=== PATIENT | male | born 1985 | race Caucasian/White ===

== ENCOUNTER 2024-05-23 12:02 | Emergency (ER) | payer OTHER ==
[~2024-05-23] VITALS: Ht 165.1 cm; Wt 72.0 kg
[2024-05-23 12:18] VITALS: TEMP 97.9
[2024-05-23 14:05] VITALS: BP 124/73; PULSE 69; RESP 16
[2024-05-23] MEDS: KETOROLAC TROMETHAMINE 30 MG/ML VIAL IM ONE (14:08)
== END 2024-05-23 14:36 | disposition home or self-care (01) ==
LOC: EMS 12:02
DX: S70.11XA Contusion of right thigh, initial encounter (principal); S09.90XA Unspecified injury of head, initial encounter; F17.210 Nicotine dependence, cigarettes, uncomplicated; Z88.8 Allergy status to other drugs, medicaments and biological substances; Y08.89XA Assault by other specified means, initial encounter; Y93.89 Activity, other specified; Y92.89 Other specified places as the place of occurrence of the external cause; Y99.8 Other external cause status
CPT/HCPCS: 99285; 70450; 73552; 96372; J1885